=== PATIENT | female | born 1980 | race Caucasian/White ===

== ENCOUNTER → 2016-11-29 | Outpatient (CLI) | payer OTHER ==
[~2016-11-29] MED LIST: ENDOCET 5-3251 EACH PO; MOTRIN800 MG PO; PREFERA-OB P1 TABLET PO; PRENATAL 1 PLU1 EACH PO; TRAMADOL HCL50 MG PO
== END | disposition home or self-care (01) ==
LOC: RAD 13:53
DX: E04.1 Nontoxic single thyroid nodule (principal)
CPT/HCPCS: 76536